=== PATIENT | female | born 1965 | race Two or more races ===

== ENCOUNTER 2020-03-16 17:19 | Emergency (ER) | payer OTHER ==
[~2020-03-16] VITALS: Ht 154.9 cm; Wt 69.0 kg
[2020-03-16 20:10] VITALS: BP 128/81
[2020-03-16] MEDS ORDERED: METH4TAB2 PO (22:19)
[2020-03-16] MEDS ORDERED: DIPH25TA64 PO (22:19)
--- NOTE | 2020-03-16 22:19 | PHYS DOC ---
General Adult EDM: Chief Complaint: SKIN RASH/ABSCESS HPI: HPI: Patient is a 55 year old female who presents with states she was outside on Thursday and then Thursday she woke with a rash that is reddened and hives all over her body. States she was around poison vangie. States she is very itchy and she is been taking Benadryl and calamine lotion. She already takes Prilosec every day. She states is just getting worse. She states she does have allergies to so she is having nasal drainage that is running down the back of her throat causing her to have a sore throat. Patient rates her itching discomfort at a 9 out of 10. Review of Systems: Review of Systems: Constitutional: Denies fever or chills. [] Eyes: Denies change in visual acuity. [] HENT: +nasal congestion , +irritated sore throat. [] Respiratory: Denies cough or shortness of breath. [] Cardiovascular: Denies chest pain or edema. [] GI: Denies abdominal pain, nausea, vomiting, bloody stools or diarrhea. [] : Denies dysuria. [] Musculoskeletal: Denies back pain or joint pain. +Itching all over. [] Integument: Denies rash. +Generalized body rash hives. [] Neurologic: Denies headache, focal weakness or sensory changes. [] Endocrine: Denies polyuria or polydipsia. [] Lymphatic: Denies swollen glands. [] Psychiatric: Denies depression or anxiety. [] Heart Score: Risk Factors: Risk Factors: DM, Current or recent (<one month) smoker, HTN, HLP, family history of CAD, obesity. Risk Scores: Score 0 - 3: 2.5% MACE over next 6 weeks - Discharge Home Score 4 - 6: 20.3% MACE over next 6 weeks - Admit for Clinical Observation Score 7 - 10: 72.7% MACE over next 6 weeks - Early Invasive Strategies Allergies: Allergies: Allergies Coded Allergies Type Severity Reaction Last Updated Verified No Known Drug Allergies 03/16/20 No Physical Exam: PE: Constitutional: Well developed, well nourished, no acute distress, non-toxic appearance. [] HENT: Normocephalic, atraumatic, bilateral external ears normal, oropharynx moist, no oral exudates, nose normal. Postnasal drip. [] Eyes: PERRLA, EOMI, conjunctiva normal, no discharge. [] Neck: Normal range of motion, no tenderness, supple, no stridor. [] Cardiovascular:Heart rate regular rhythm, no murmur [] Lungs & Thorax: Bilateral breath sounds clear to auscultation [] Abdomen: Bowel sounds normal, soft, no tenderness, no masses, no pulsatile masses. [] Skin: Warm, dry, no erythema, generalized hives rash. [] Back: No tenderness, no CVA tenderness. [] Extremities: No tenderness, no cyanosis, no clubbing, ROM intact, no edema. [] Neurologic: Alert and oriented X 3, normal motor function, normal sensory function, no focal deficits noted. [] Psychologic: Affect normal, judgement normal, mood normal. [] EKG: EKG: [] Radiology/Procedures: Radiology/Procedures: [] Course & Med Decision Making: Course & Med Decision Making Pertinent Labs and Imaging studies reviewed. (See chart for details) See HPI. Alert and oriented x4. Ambulatory with a steady gait. Speaks in full complete sentences. There is no swelling to the uvula and the uvula is midline. There is no swelling to her throat or hives in the mouth. There is no swelling to the tongue or on the face. No rash to the face. She has hives that are generalized all over her body. Patient has postnasal drip. Throat is pink without exudates or swelling. Vital signs are within normal limits. Patient to continue taking her Protonix. I told her to continue taking Benadryl every 4-6 hours along with a Medrol Dosepak. [] Dragon Disclaimer: Dagoberto Disclaimer: This electronic medical record was generated, in whole or in part, using a voice recognition dictation system. Departure Departure Impression: Primary Impression: Hives Additional Impression: Poison vangie Disposition: 01 DC HOME SELF CARE/HOMELESS Condition: STABLE Referrals: UNKNOWN PCP NAME (PCP) Patient Instructions: Hives, [id number], Poison Vangie, [id number] Additional Instructions: Follow-up with a primary care physician. Take medication as prescribed and with food. If you begin having shortness of breath or feel like your throat is swelling up return to the emergency room. Scripts Diphenhydramine Hcl (BENADRYL ALLERGY) 25 Mg Tablet 1 TAB PO Q6HRS for 7 Days, #28 TAB 0 Refills Prov: JOSSIE AVERY APRN 03/16/20 Methylprednisolone (MEDROL) 4 Mg Tab.ds.pk 1 PKG PO UD, #1 PKG Prov: JOSSIE AVERY APRN 03/16/20 JOSSIE AVERY APRN Mar 16, 2020 22:19
== END 2020-03-16 22:40 | disposition home or self-care (01) ==
LOC: ER 17:19
DX: L23.7 Allergic contact dermatitis due to plants, except food (principal); R21 Rash and other nonspecific skin eruption; R09.81 Nasal congestion
CPT/HCPCS: 99283